=== PATIENT | female | born 1965 | race Caucasian/White ===

== ENCOUNTER 2023-03-09 21:44 | Emergency (ER) | payer OTHER, SELFPAY ==
[2023-03-09] MEDS ORDERED: MORPHINE SULFATE 4 MG INJ IM ONE (22:06)
[2023-03-09 22:13] VITALS: O2SAT 97
[2023-03-09] MEDS ORDERED: MORPHINE SULFATE 4 MG INJ ONE (22:20)
[2023-03-09] MEDS ORDERED: NORCO 5/325 MG PO ONE (22:42)
--- NOTE | 2023-03-09 22:42 | ERPHSYRPT ---
- History of Present Illness Time Seen by Provider: 03/09/23 21:51 Source: patient Exam Limitations: no limitations Patient Subjective Stated Complaint: pt states she was leaving the hospital and she tripped over the curb and fell forward landing on bilat hands and knees. pain in bilat knees. complain of pain to right arm, wrist, hand/ left wrist, hand, bilat knees. Triage Nursing Assessment: pt ambulated to room 9 independently with slow steady gait after standing on scale for weight acquisition. pt is alert and oriented times three, able to move all extremities (ROM limited to all extremities due to pain), able to speak in complete sentences, and with resp even and unlabored. skin warm, pale, dry, intact with exception of slight abrasion to left knee. bilat radial and pedal pulses are palpable. all extremities with color, sensation, and cap refill within normal limits. pt complains of pain to left hand/ wrist, bilat knees, right arm/ elbow/ wrist/ and hand. denies hitting head or other injuries. denies loss of consciousness. Physician History: 58 years old female presented in the ER with chief complaint of fall. Patient reports she was walking out of the hospital, tripped on the carpet and fell forw maria esther on both knees and both wrists. Patient reported moderate intensity sharp pain in the left knee and both wrist and right elbow. Patient was able to get up and ambulate back for check in the ER. Patient reports swelling of left knee with difficulty movements. Also having painful movements at both wrist and right elbow. Did not hit her head. No loss of consciousness. Up-to-date with tetanus. Patient has abrasion left knee with swelling but intact passive range of motion. Diffuse knee tenderness. Intact range of motion of both wrist and elbow but mild to moderate tenderness. Lungs bilateral clear to auscultation. No cervical spine tenderness. Intact range of motion of neck. Allergies/Adverse Reactions: NSAIDS (Non-Steroidal Anti-Inflamma Allergy (Mild, Verified 03/09/23 21:49) Home Medications: Enalapril Maleate 0 mg PO HS 03/09/23 [History] Hydrochlorothiazide 25 mg [hydroDIURIL 25 MG] 12.5 mg PO DAILY 03/09/23 [History] Metoprolol Succinate [Toprol Xl] 25 mg PO DAILY 03/09/23 [History] Hx Tetanus, Diphtheria Vaccination/Date Given: Yes Hx Influenza Vaccination/Date Given: Yes Hx Pneumococcal Vaccination/Date Given: No Immunizations Up to Date: Yes Travel Risk - International Travel Have you traveled outside of the country in past 3 weeks: No - Coronavirus Screening Are you exhibiting any of the following symptoms?: No Close contact with a COVID-19 positive Pt in past 14-21 Days: No - Vaccine Status Have you recieved a Covid-19 vaccination: Yes Bilingual Customer Service: Erly - Review of Systems Constitutional: No Symptoms Eyes: No Symptoms Ears, Nose, & Throat: No Symptoms Respiratory: No Symptoms Cardiac: No Symptoms Abdominal/Gastrointestinal: No Symptoms Genitourinary Symptoms: No Symptoms Musculoskeletal: Fall, Injury, Joint Redness, Joint Pain, Joint Swelling Skin: Skin Lesions Neurological: No Symptoms Endocrine: No Symptoms Hematologic/Lymphatic: No Symptoms - Past Medical History Pertinent Past Medical History: Yes Neurological History: No Pertinent History ENT History: No Pertinent History Cardiac History: Arrhythmia, Hypertension Respiratory History: No Pertinent History Endocrine Medical History: No Pertinent History Musculoskeletal History: Arthritis GI Medical History: Other History: No Pertinent History Psycho-Social History: No Pertinent History Female Reproductive Disorders: No Pertinent History Other Medical History: hayder en y 2017. partial hysterectomy - Past Surgical History Past Surgical History: Yes Neuro Surgical History: No Pertinent History Cardiac: No Pertinent History Respiratory: No Pertinent History Gastrointestinal: Appendectomy, Other Genitourinary: No Pertinent History Musculoskeletal: Orthopedic Surgery Female Surgical History: Hysterectomy Other Surgical History: partial hysterectomy- bilat ovaries remain. hayder en y gastric bypass surgery. right elbow surgery, right shoulder surgery. left knee repair of torn meniscus and repair of bone spurs - Social History Smoking Status: Former smoker Exposure to second hand smoke: Yes Drug Use: none Patient Lives Alone: No - Nursing Vital Signs Nursing Vital Signs: Initial Vital Signs Pulse Rate 93 H 03/09/23 22:01 Respiratory Rate 18 03/09/23 22:01 Blood Pressure 156/71 03/09/23 22:01 O2 Sat by Pulse Oximetry 97 03/09/23 22:01 Pain Scale Pain Intensity 9 - [place] Coma Score Best Eye Response ([place]): (4) open spontaneously Best Verbal Response ([place]): (5) oriented Best Motor Response ([place]): (6) obeys commands Lj Total: 15 - Physical Exam General Appearance: no apparent distress, alert Head Injury: no evidence of injury Eye Exam: PERRL/EOMI, eyes nml inspection ENT Exam: airway nml, No evidence of ENT injury, No dental injury Neck Exam: supple, trachea midline, full range of motion, normal alignment, normal inspection, No muscle spasm, No paraspinous muscle tender, No pain on movement of neck Respiratory/Chest Exam: normal breath sounds, respiratory distress, No chest tenderness Cardiovascular Exam: normal heart sounds, regular rate/rhythm Back Exam: normal inspection, normal range of motion Extremity Exam: joint swelling, bony point tenderness, pain with movement Neurologic Exam: alert, oriented x 3, cooperative, mitochondrial disorders counselor II-XII nml as tested, normal mood/affect, nml cerebellar function, sensation nml, No motor deficits Skin Exam: normal color SpO2 Interpretation: normal SpO2: 97 O2 Delivery: Room Air Ordered Tests: Active Orders 24 hr Category Date Time Status ELBOW (MINIMUM 3 VIEWS) Stat Exams 03/09/23 22:06 Taken KNEE (3 VIEWS) Stat Exams 03/09/23 22:05 Taken WRIST (MIN 3 VIEWS) Stat Exams 03/09/23 22:05 Taken WRIST (MIN 3 VIEWS) Stat Exams 03/09/23 22:06 Taken Medication Summary Discontinued Medications Generic Name Dose Route Start Last Admin Trade Name Beena PRN Reason Stop Dose Admin Hydrocodone Bitart/Acetaminophen 2 tab 03/09/23 22:42 03/09/23 23:00 Hydrocodone/Apap 5/325 1 Tab Tablet PO 03/09/23 22:43 2 tab SENT HOME W/ PATIENT ONE Administration Hydrocodone Bitart/Acetaminophen Confirm 03/09/23 22:59 Hydrocodone/Apap 5/325 1 Tab Tablet Administered 03/09/23 23:00 Dose 2 tab .ROUTE .STK-MED ONE Morphine Sulfate 4 mg 03/09/23 22:06 03/09/23 22:28 Morphine Sulfate 4 Mg/Ml Injection IM 03/09/23 22:07 4 mg STAT ONE Administration Morphine Sulfate Confirm 03/09/23 22:20 Morphine Sulfate 4 Mg/Ml Injection Administered 03/09/23 22:21 Dose 4 mg .ROUTE .STK-MED ONE - Progress Progress: improved Progress Note: 03/09/23 22:59 58 years old female presented in the ER with chief complaint of fall. Patient reports she was walking out of the hospital, tripped on the carpet and fell forward on both knees and both wrists. Patient reported moderate intensity sharp pain in the left knee and both wrist and right elbow. Patient was able to get up and ambulate back for check in the ER. Patient reports swelling of left knee with difficulty movements. Also having painful movements at both wrist and right elbow. Did not hit her head. No loss of consciousness. Up-to-date with tetanus. Patient has abrasion left knee with swelling but intact passive range of motion. Diffuse knee tenderness. Intact range of motion of both wrist and elbow but mild to moderate tenderness. Lungs bilateral clear to auscultation. No cervical spine tenderness. Intact range of motion of neck. She is given pain medication for symptomatic relief. X-rays left knee, both wrists and right elbow are negative for acute fracture or dislocation reviewed by me. I believe patient has contusion. Applied Dariel wrap on the knee and Velcro splints on the wrist, recommended intermittent ice application. Tylenol as needed and outpatient follow-up. Discussed signs symptoms of worsening needing return to ER which she seems understanding. Stable for discharge. 03/09/23 23:15 Counseled pt/family regarding: diagnosis, need for follow-up, rad results Medical Desision Making - Diagnostic Testing Diagnostic test were ordered, analyzed, and reviewed by me: Yes Radiological Interpretation: Interpreted by me, Reviewed by me - Departure Departure Disposition: Home Clinical Impression: Knee contusion, Fall, Other wrist sprain and strain Condition: Stable Critical Care Time: No Referrals: HASMUKH IBARRA NP [Primary Care Provider] - Follow up with PCP 1 day UNIQUE - LOUIS HARDING NP [NON-STAFF PHY W/O PRIVILEGES] - Follow up/PCP as directed (Tomorrow for reevaluation) Instructions: Contusion (DC) Additional Instructions: Take Tylenol as needed. Intermittent ice application. Follow-up with primary care/orthopedics for reevaluation. Use cane/walker for ambulation. Return to ER for any worsening.
[2023-03-09] MEDS ORDERED: NORCO 5/325 MG ONE (22:59)
[2023-03-09 23:13] VITALS: PULSE 81; RESP 20
[2023-03-10 00:04] VITALS: BP 170/80; TEMP 98.4
--- NOTE | 2023-03-10 08:40 | XRAY ---
Indication: Pain following fall. Comparison: None 3 view left knee demonstrates osteopenia and mild medial joint space narrowing/spurring. No other bony, articular, or soft tissue abnormalities.
--- NOTE | 2023-03-10 08:42 | XRAY ---
Indication: Pain following fall. Comparison: None 3 view left wrist demonstrates osteopenia and mild 1st metacarpal multangular degenerative changes. No other bony, articular, or soft tissue abnormalities.
--- NOTE | 2023-03-10 08:42 | XRAY ---
Indication: Pain following fall. Comparison: None 3 view right wrist demonstrates osteopenia and mild 1st metacarpal multangular degenerative changes. No other bony, articular, or soft tissue abnormalities.
--- NOTE | 2023-03-10 08:44 | XRAY ---
Indication: Pain following fall. Comparison: None 3 view right elbow demonstrates nondisplaced radial head acute fracture and osteopenia. No other bony, articular, or soft tissue abnormalities. Comment: Fracture not reported by interpreting ER clinician. Telephone report was given to Dr. Rasheed at 0839 hrs. on March 10, 2023.
== END 2023-03-09 23:35 | disposition home or self-care (01) ==
LOC: ED 21:44
DX: S80.02XA Contusion of left knee, initial encounter (principal); S63.502A Unspecified sprain of left wrist, initial encounter; S63.501A Unspecified sprain of right wrist, initial encounter; W01.0XXA Fall on same level from slipping, tripping and stumbling without subsequent striking against object, initial encounter; Y92.239 Unspecified place in hospital as the place of occurrence of the external cause; M25.521 Pain in right elbow; I10 Essential (primary) hypertension; Z79.899 Other long term (current) drug therapy
CPT/HCPCS: 73080; 73110; 73562; 96372; 99283; J2270; L3908; A9270-GY